=== PATIENT | female | born 1970 ===

== ENCOUNTER → 2018-04-19 20:56 | Outpatient (REF) | payer OTHER, SELFPAY ==
[2018-04-19 22:15] LABS: Alanine Aminotransferase 49 IU/L (9-52); Albumin 4.2 g/dL (3.5-5.0); Albumin Globulin Ratio 1.2 (1.0-2.8); Alkaline Phosphatase 81 U/L (38-126); Aspartate Aminotransferase 47 IU/L (14-36); BUN Creatinine Ratio 17.8 (6-22); Bilirubin Total 0.5 mg/dL (0.2-1.3); Blood Urea Nitrogen 16 mg/dL (7-17); Calcium 9.3 mg/dL (8.4-10.2); Carbon Dioxide 29 mmol/L (22-32); Chloride 101 mmol/L (98-107); Estimated Glomerular Filt Rate > 60.0 mL/min (>60); Globulin 3.6 g/dL (1.7-4.1); Glucose 117 mg/dL (70-100); HEMOLYSIS < 15 (0-50); Sodium 142 mmol/L (137-145); Total Protein 7.8 g/dL (6.3-8.2)
[2018-04-19 23:46] LABS: Hemoglobin A1C% w Est Avg Glu 6.2 % (4.0-6.0)
[2018-04-20 08:28] LABS: Free T3, Triiodothyronine Free 2.78 pg/mL (2.77-5.27); Free T4, Direct Thyroxine 1.51 ng/dL (0.78-2.19)
[2018-04-20 08:41] LABS: Thyroid Stimulating Hormone 0.08 uIU/mL (0.47-4.68)
[2018-04-22 21:14] LABS: Estrogen 125.6 pg/mL
[2018-04-23 16:38] LABS: Progesterone 4.2 ng/mL
[2018-04-26 12:05] LABS: Testosterone Free 3.4 pg/mL (0.1-6.4); Testosterone Total 22 ng/dL (2-45)
== END ==
LOC: LAB 20:56
PROVIDERS: Visit Provider Naturopath
DX: L65.9 Nonscarring hair loss, unspecified (principal); Z13.89 Encounter for screening for other disorder; N95.1 Menopausal and female climacteric states; K75.81 Nonalcoholic steatohepatitis (NASH); R53.83 Other fatigue; E03.9 Hypothyroidism, unspecified; G47.00 Insomnia, unspecified; R73.09 Other abnormal glucose
CPT/HCPCS: 36415; 80053; 82672; 83036; 84144; 84402; 84403; 84439; 84443; 84481